=== PATIENT | male | born 1975 | race Caucasian/White ===

== ENCOUNTER → 2018-09-12 07:34 | Outpatient (CLI) | payer OTHER, SELFPAY ==
--- NOTE | 2018-09-12 | DI.US.S_ITS ---
PROCEDURE: US ABDOMEN COMPLETE INDICATIONS: RIGHT UPPER QUADRANT PAIN TECHNIQUE: Real-time scanning was performed of the abdominal and retroperitoneal organs, with image documentation. COMPARISON: None. FINDINGS: Liver: The liver is diffusely echogenic without focal intrahepatic abnormalities. However, study is limited due to scanning characteristics of the patient with the posterior margins of the liver difficult to visualize. Possible focal fatty sparing near the gallbladder fossa measuring 1.6 x 0.7 x 1.9 cm. Gallbladder: The gallbladder does not appear distended. There are low level internal echoes with suggestion of layering and may represent sludge. No gallstones. No wall thickening. No pericholecystic fluid. Negative sonographic Rivera's sign. Biliary ducts: Intrahepatic bile ducts are non-dilated. Extrahepatic bile duct caliber measures 4 mm. Normal is 6-7 mm or less in diameter, or 10 mm or less post-cholecystectomy. Pancreas: Visualized portions of the pancreas are sonographically normal. Spleen: Spleen is normal in size and homogeneous in echotexture. Kidneys: Kidneys are normal in size and echotexture. Right kidney measures 10.3 cm long; left kidney measures 10.2 cm long. No hydronephrosis or nephrolithiasis. No solid masses. Aorta: Visualized aorta is normal in caliber at less than 3 cm. Iliacs: Proximal common iliac arteries are normal in caliber at less than 2.5 cm. IVC: Intrahepatic inferior vena cava is patent. Miscellaneous: No free abdominal fluid. IMPRESSION: 1. Slightly limited study due to patient scanning characteristics. Findings of diffuse hepatic steatosis with likely focal fatty sparing near the gallbladder. 2. Gallbladder sludge. Otherwise, no sonographic evidence for cholelithiasis or acute cholecystitis. If there are persistent clinical concerns, further evaluation with CT can be considered. Dictated by: Adeel Carrero M.D. on 09/12/2018 at 17:36 Approved by: Adeel Carrero M.D. on 09/12/2018 at 17:40
== END ==
PROVIDERS: Family Provider Family Medicine; PCP Family Medicine; Visit Provider Family Medicine
DX: R10.11 Right upper quadrant pain (principal); K76.0 Fatty (change of) liver, not elsewhere classified; K83.8 Other specified diseases of biliary tract
CPT/HCPCS: 76700

== ENCOUNTER → 2018-11-08 12:07 | Outpatient (CLI) | payer OTHER, SELFPAY ==
--- NOTE | 2018-11-08 | DI.NM.S_ITS ---
PROCEDURE: NM HIDA WITH CCK PHARMACEUTICAL: 4.7 mCi Tc-99m mebrofenin IV; 1.0 mcg CCK IV. INDICATIONS: right upper quandrant pain TECHNIQUE: Following intravenous administration of Tc-99m mebrofenin, sequential anterior abdominal images were obtained. To evaluate the contractile response of the gallbladder in response to Cholecystokinin (CCK), sincalide (0.02 ?g/kg) was administered by slow intravenous infusion approximately 60 minutes after the administration of the radiopharmaceutical. Sequential imaging was continued for 30 minutes after the start of CCK infusion. Gallbladder ejection fraction was calculated. COMPARISON: [facility], , US ABDOMEN COMPLETE, 09/12/2018, 8:06. FINDINGS: Biliary scan: There is normal tracer uptake and excretion by the liver. There is normal visualization of the intrahepatic ducts, common bile duct, and gallbladder. There is normal tracer transit into the duodenum. CCK stimulation: There is normal contractile response of the gallbladder to CCK infusion. The calculated gallbladder ejection fraction is 93%; normal values are above 35%. It has been shown that any patient abdominal pain after CCK administration is related to the rate of CCK injection, rather than to any underlying gallbladder disease (Clinical Nuclear Medicine 2012; 37: 63-70. Journal of Nuclear Medicine 2014; 55: 1-9). IMPRESSION: Normal hepatobiliary scan, excellent gallbladder contractility with the 93% gallbladder ejection fraction. Dictated by: Griffin Gamboa M.D. on 11/08/2018 at 15:06 Approved by: Griffin Gamboa M.D. on 11/08/2018 at 15:08
== END ==
PROVIDERS: PCP Family Medicine; Visit Provider Family Medicine
DX: R10.11 Right upper quadrant pain (principal)
CPT/HCPCS: 78227; A9537; J2805

== ENCOUNTER 2019-05-27 09:27 | Emergency (ER) | payer OTHER, SELFPAY ==
[2019-05-27 09:33] VITALS: BP 128/105; PULSE 97; RESP 16; TEMP 36.6; O2SAT 98; BMI 28.5
--- NOTE | 2019-05-27 09:34 | ED_ITS ---
HPI - General Adult General Chief complaint: Blood/Body fluid exposure Stated complaint: Patient being transporte spit in his eye Time Seen by Provider: 05/27/19 09:34 Source: patient Mode of arrival: Ambulatory Limitations: no limitations History of Present Illness HPI narrative: This is a 43-year-old male who comes emergency department after taking custody of a patient in the emergency department. Had exposure to saliva he had spit in his face and eyes. There is no obvious blood in the saliva itself. He immediately washed his face afterwards. He states he is up-to-date on his tetanus and believes he had his hepatitis-B series about 20 years ago. Patient states he takes medication for GERD, no other medical problems. Patient is otherwise healthy. Related Data Allergies Allergy/AdvReac Type Severity Reaction Status Date / Time bacitracin Allergy Verified 05/27/19 09:33 [From Neosporin ([id number])] neomycin Allergy Verified 05/27/19 09:33 [From Neosporin ([id number])] polymyxin B Allergy Verified 05/27/19 09:33 [From Neosporin ([id number])] Review of Systems Review of Systems ROS Unobtainable: All systems reviewed & are unremarkable except as noted in HPI and below Exam Narrative Exam Narrative: GENERAL: Alert and oriented x three, well-nourished, well- appearing male in mild distress. HEENT: Head normocephalic, atraumatic, EOMI, pupils reactive, face symmetric, moist mucous membranes NECK: Supple, full range of motion CARDIOVASCULAR: Regular rate and rhythm without murmurs, rubs or gallops. RESPIRATORY: Breath sounds equal bilaterally, no wheezes rales or rhonchi. EXTREMITIES: Normal range of motion. Normal gait. NEUROLOGICAL: Cranial nerves II through XII grossly intact. Moving all extremi ties SKIN: Warm, dry, no petechiae, no rashes or lesions. Initial Vital Signs Initial Vital Signs: Vital Signs Temperature 97.9 F 05/27/19 09:33 Pulse Rate 97 H 05/27/19 09:33 Respiratory Rate 16 05/27/19 09:33 Blood Pressure 128/105 H 05/27/19 09:33 Pulse Oximetry 98 05/27/19 09:33 Course Orders Ordered: ED Orders 05/27/19 09:55 Alanine Aminotransferase Stat HIV 1 & 2 Ab/Ag 4th Gen Combo Stat Hepatitis C Virus Antibody Stat Vital Signs Vital signs: Vital Signs - 8 hr 05/27/19 09:33 Temperature 97.9 F Pulse Rate 97 H Respiratory Rate 16 Blood Pressure 128/105 H Pulse Oximetry 98 Medical Decision Making Lab Data Lab results reviewed: Yes I reviewed the patient's lab results. Labs: Lab Results 05/27/19 05/27/19 Range/Units 09:55 09:55 ALT 81 H (<50) IU/L Hepatitis C Antibody Negative (NEGATIVE) s/c HIV 1&2 Ab/P24 Ag 4thGn Negative (NEGATIVE) MDM Narrative Medical decision making narrative: Officer contacted with final results of his baseline testing. Hep B surface antibody is send out and pending. He will follow up with Dr. Estrada later this week for final results. We did discuss if he does not have immunity he should have the Hep B series repeated. Patient also informed that source testing was negative for Hep C and HIV at this time but would recommend serial testing as per protocol. Discharge Plan Departure Patient Disposition: Home Clinical Impression: Exposure to blood or body fluid Discharge Date/Time: 05/27/19 10:00 Activity Restrictions/Additional Instructions: Follow up with [facility] for additional testing. Typically the protocol as at 3, 6 and 12 months. Your labs and the source are pending, if you have not heard back by 1300 today. Call [phone] De La O. Return for any new or concerning symptoms. Referrals: Ugo Estrada MD [Primary Care Provider] -
--- NOTE | 2019-05-27 10:01 | PC.NURSE ---
Source had possible injury to mouth earlier with small amount of bleeding, risk for blood exposure.
[2019-05-27 10:09] LABS: Alanine Aminotransferase 81 IU/L (<50)
[2019-05-27 12:11] LABS: HIV 1 & 2 Ab/Ag 4th Gen Combo NEGATIVE (NEGATIVE); Hep C Virus Ab w/Reflex Quant NEGATIVE s/c (NEGATIVE)
[2019-05-29 15:27] LABS: Hepatitis B Surf Ab Qualitativ Nonreactive (Nonreactive)
== END 2019-05-27 10:00 | disposition home or self-care (01) ==
PROVIDERS: Emergency Provider Emergency Medicine; PCP Family Medicine
DX: Z77.21 Contact with and (suspected) exposure to potentially hazardous body fluids (principal); Y99.0 Civilian activity done for income or pay
CPT/HCPCS: 84460; 86706; 86803; 87389; 99281; 99283

== ENCOUNTER → 2019-11-07 09:28 | Outpatient (CLI) | payer OTHER, SELFPAY ==
--- NOTE | 2019-11-07 | DI.RAD.S_ITS ---
PROCEDURE: XR CHEST 2V INDICATIONS: DYSPNEA TECHNIQUE: 2 views of the chest were acquired. COMPARISON: None. FINDINGS: Surgical changes and devices: None. Lungs and pleura: Subtle interstitial prominence bilaterally. Lung volumes are only mildly inflated. No pleural effusions or pneumothorax. Mediastinum: Mediastinal contours are normal. Heart size is normal. Bones and chest wall: No suspicious bony abnormalities. Soft tissues appear unremarkable. IMPRESSION: Subtle interstitial prominence bilaterally. This could be due to atelectasis, infectious/inflammatory etiology, or fluid overload. Dictated by: Harsh Yeung M.D. on 11/07/2019 at 10:06 Approved by: Harsh Yeung M.D. on 11/07/2019 at 10:07
== END ==
PROVIDERS: PCP Family Medicine; Referring Provider Family Medicine; Visit Provider Family Medicine
DX: R06.00 Dyspnea, unspecified (principal)
CPT/HCPCS: 71046

== ENCOUNTER → 2019-11-16 14:59 | Outpatient (CLI) | payer OTHER, SELFPAY ==
[2019-11-17 05:56] LABS: COVID19 Sendout Not Detected (Not Detect)
== END ==
PROVIDERS: PCP Family Medicine; Visit Provider Physician Assistant
DX: Z01.812 Encounter for preprocedural laboratory examination (principal)
CPT/HCPCS: 87635

== ENCOUNTER → 2019-11-21 14:01 | Outpatient (CLI) | payer OTHER, SELFPAY ==
[2019-11-22 14:14] LABS: COVID19 Sendout Not Detected (Not Detect)
== END ==
PROVIDERS: PCP Family Medicine; Visit Provider Physician Assistant
DX: Z01.812 Encounter for preprocedural laboratory examination (principal)
CPT/HCPCS: 87635

== ENCOUNTER → 2019-12-19 11:37 | Outpatient (CLI) | payer OTHER, SELFPAY ==
--- NOTE | 2019-12-19 | DI.CT.S_ITS ---
PROCEDURE: CT CHEST WO CON INDICATIONS: Other forms of dyspnea TECHNIQUE: Noncontrast 5 mm thick sections acquired from the pulmonary apices to the posterior costophrenic angles. 1 mm lung window, 5 mm thick coronal and sagittal and 7 mm axial MIP reformats were then acquired. For radiation dose reduction, the following was used: automated exposure control, adjustment of mA and/or kV according to patient size. COMPARISON: None. FINDINGS: Image quality: Excellent. Lungs and pleura: No acute air space opacities. A 3 mm calcified granuloma is present within the right lower lobe. No pleural effusions or pneumothorax. Central and peripheral airways are patent and normal in caliber. Mediastinum: Heart size is normal. No pericardial effusion. No mediastinal adenopathy by size criteria. Thoracic aorta and central pulmonary arteries are normal in size. Esophagus is normal in caliber. No hiatal hernia. Bones and chest wall: No suspicious bony lesions. No vertebral body compression fractures. No axillary or supraclavicular adenopathy by size criteria. Thyroid gland is unremarkable . Abdomen: Visualized upper abdominal solid organs and bowel loops appear normal in the absence of contrast. IMPRESSION: 1. No acute airspace opacities. No findings to explain dyspnea Dictated by: Alicia Barnard M.D. on 12/19/2019 at 12:56 Approved by: Alicia Barnard M.D. on 12/19/2019 at 13:00
== END ==
PROVIDERS: PCP Family Medicine; Referring Provider Family Medicine; Visit Provider Family Medicine
DX: R06.09 Other forms of dyspnea (principal)
CPT/HCPCS: 71250

== ENCOUNTER → 2024-07-12 10:46 | Outpatient (CLI) | payer OTHER, SELFPAY ==
--- NOTE | 2024-07-12 10:48 | DI.MRI.S_ITS ---
PROCEDURE: MR KNEE RT WO CON INDICATIONS: RIGHT KNEE PAIN TECHNIQUE: Noncontrast sagittal PD fast spin echo and T2 fast spin echo with fat saturation, sagittal 3-D FLASH with fat saturation; coronal T1 spin echo and PD fast spin echo with fat saturation, and axial PD fast spin echo with fat saturation through the knee. COMPARISON: [facility], CR, XR KNEE ARTHRITIC SERIES RT, 06/04/2024, 7:47. FINDINGS: Image quality: Excellent. Menisci: In the medial meniscus, there is near complete maceration the medial meniscus body. There is mild extrusion the residual medial meniscus body. in the lateral meniscus, there is small radial tear of the inner margin of the meniscus body. No extrusion of the lateral meniscus body. Cruciate ligaments: The anterior and posterior cruciate ligaments appear intact. Medial structures: The medial collateral ligament appears intact. The posterior oblique ligament, semimembranosus tendon insertions, oblique popliteal ligament, and meniscocapsular junction appear intact. Visualized portions of the pes anserinus tendons appear normal. No abnormal bursal fluid. Lateral structures: The lateral collateral ligament, long and short heads of the biceps femoris tendon appear intact. The popliteus tendon appears normal; the popliteofibular ligament appears intact. The posterosuperior and anteroinferior popliteomeniscal fascicles appear intact. The arcuate and fabellofibular ligaments appear intact, on either side of the lateral inferior geniculate artery. Iliotibial band appears normal. Anterior structures: Mild tendinosis of the distal quadriceps tendon. The patellar tendon is unremarkable. Patellar alignment is normal. No femoral trochlear dysplasia or ventral trochlear prominence. Mild Hoffa's fat pad edema. Bones and cartilage: The cartilage of the patella is well maintained. In the trochlea, there is 7 mm focal full-thickness chondral loss in the central trochlea. In the medial compartment, there is mild chondral thinning of the weight-bearing portion of the medial femoral condyle and the medial tibial plateau, with mild subchondral marrow edema in the medial tibial plateau. The cartilage of the lateral compartment is well maintained No acute fracture. Joint space: Trace knee effusion. Large popliteal cyst. Popliteal vasculature is unremarkable. No intra-articular body. IMPRESSION: 1. Near complete maceration of the medial meniscus body. 2. Small radial tear of the inner margin of the lateral meniscus body. 3. 7 mm full-thickness chondral loss in the central trochlea. 4. Mild chondrosis of the medial compartment with mild subchondral marrow edema. Dictated by: Sri Guzmán M.D. on 07/12/2024 at 13:47 Approved by: Sri Guzmán M.D. on 07/12/2024 at 13:59
== END ==
PROVIDERS: PCP Family Medicine; Referring Provider Orthopaedic Surgery; Visit Provider Orthopaedic Surgery
DX: S83.241A Other tear of medial meniscus, current injury, right knee, initial encounter (principal); S83.281A Other tear of lateral meniscus, current injury, right knee, initial encounter; M17.11 Unilateral primary osteoarthritis, right knee; M25.561 Pain in right knee; M71.21 Synovial cyst of popliteal space [Baker], right knee; M94.261 Chondromalacia, right knee
CPT/HCPCS: 73721